=== PATIENT | female | born 1945 | race Caucasian/White ===

== ENCOUNTER 2025-08-03 16:14 | Emergency (ER) | payer OTHER ==
[2025-08-03 16:50] VITALS: RESP 18; BMI 19.5
[2025-08-03 19:40] VITALS: BP 127/64; PULSE 68; TEMP 97.7
== END 2025-08-03 19:20 | disposition home or self-care (01) ==
LOC: FER 16:14
DX: Z04.3 Encounter for examination and observation following other accident (principal); W01.198A Fall on same level from slipping, tripping and stumbling with subsequent striking against other object, initial encounter; Y92.129 Unspecified place in nursing home as the place of occurrence of the external cause
CPT/HCPCS: 70450-TC; 71045-TC-FY; 72125-TC; 72170-TC-FY; 99284-25